=== PATIENT | female | born 1970 | race Caucasian/White ===

== ENCOUNTER 2018-05-05 15:26 | Emergency (ER) | payer OTHER ==
[~2018-05-05] VITALS: Ht 165.1 cm; Wt 56.5 kg
[~2018-05-05 15:26] MED LIST: iron PO
[2018-05-05 15:29] VITALS: BP 130/78; PULSE 68; RESP 18; Ht 165.1 cm; Wt 56.5 kg
--- NOTE | 2018-05-05 15:54 | ERD ---
ER Documentation Chief Complaint Chief Complaint right elbow pain x 2days HPI 47-year-old female, with history of chronic neck pain, presents the emergency department, complaining of acute worsening of neck pain, radiating to the right upper extremity during the last 2 days, the pain is sharp, constant, 5/10. No history of trauma. The patient denies distal weakness, numbness or tingling. No medications taken at this time. She denies fevers, no chills, no rashes. ROS All systems reviewed and are negative except as per history of present illness. Medications Home Meds Active Scripts Baclofen* (Baclofen*) 10 Mg Tablet, 10 MG PO QHS, #10 TAB Prov:LEXIS MCKINNON MD 05/05/18 Ibuprofen* (Motrin*) 400 Mg Tab, 400 MG PO Q8, #15 TAB Prov:LEXIS MCKINNON MD 05/05/18 Reported Medications [iron] No Conflict Check, 1 TAB PO DAILY 05/20/13 Allergies Allergies: Coded Allergies: No Known Drug Allergies (Verified Allergy, 02/22/13) PMhx/Soc History of Surgery: Yes (hysteroscopy) Anesthesia Reaction: No Hx Neurological Disorder: No Hx Respiratory Disorders: No Hx Cardiac Disorders: No Hx Psychiatric Problems: No Hx Miscellaneous Medical Probl: Yes (anemia) Hx Alcohol Use: No Hx Substance Use: No Hx Tobacco Use: No Smoking Status: Never smoker FmHx Family History: No diabetes, No coronary disease Physical Exam Vitals Vital Signs Date Temp Pulse Resp B/P (MAP) Pulse Ox O2 O2 Flow FiO2 Time Delivery Rate 05/05/18 98.5 68 18 130/78 100 15:29 (95) Physical Exam Const: No acute distress Head: Atraumatic Eyes: Normal Conjunctiva ENT: Normal External Ears, Nose and Mouth. Neck: Full range of motion. No meningismus. Resp: Clear to auscultation bilaterally Cardio: Regular rate and rhythm, no murmurs Abd: Soft, non tender, non distended. Normal bowel sounds Skin: No petechiae or rashes Back: No midline or flank tenderness Ext: Right upper extremity: Normal inspection, normal pulses, no deformity, no masses. No cyanosis, or edema Neur: Awake and alert Psych: Normal Mood and Affect Results 24 hrs Current Medications Medications Dose Sig/Yasmin Start Time Status Last (Trade) Ordered Route PRN Stop Time Admin Dose Reason Admin Ketorolac 30 mg ONCE STAT 05/05/18 DC Tromethamine IM 17:08 (Toradol) 05/05/18 17:12 DIAGNOSTIC IMAGING REPORT Patient: LOU TARANGO : 1970 Age: 47 Sex: F MR #: [id number] DOS: 05/05/18 1552 Ordering MD: LEXIS MCKINNON MD Location: [facility] Room/Bed: PROCEDURE: Right humerus x-ray CLINICAL INDICATION: rt humerus pain TECHNIQUE: AP and lateral views of the humerus were obtained. COMPARISON: None FINDINGS: No acute fracture. No dislocation of the shoulder or elbow joints. No erosive changes or periosteal reaction. No focal soft tissue abnormality. IMPRESSION: Unremarkable x-ray of the right humerus. RPTAT:AAJJ Physician Leda Date Time Electronically viewed and signed by Mckay K[place]ney Physician on 05/05/2018 16:29 RF/ CC: LEXIS MCKINNON MD [phone] Procedures/MDM No red flags. Differential diagnosis include but not limited to: Cervical sprain/strain, cervical radiculopathy, herniated disk, muscle spasm. Neurovascular exam grossly intact. no clinical findings suggestive of acute infectious process, no acute deformity, no edema, no rashes. Physical examination and clinical presentation consistent most likely with acute on chronic neck pain with radiculopathy. During the ED course the patient received treatment with Toradol IM presenting overall improvement of the symptoms. Results and clinical impression discussed with patient who agrees with manag ement. The patient is stable to be treated outpatient and will be discharged home with recommendations and close monitoring The patient was instructed to follow up with the primary care provider in the next 48h. If symptoms persist, worsen or new symptoms develop, then patient should return to the ED immediately. Instructions explained and given to patient with acknowledgment and demonstrated understanding. Disclaimer: Inadvertent spelling and grammatical errors are likely due to EHR/dictation software use and do not reflect on the overall quality of patient care. Also, please note that the electronic time recorded on this note does not necessarily reflect the actual time of the patient encounter. Departure Diagnosis: Primary Impression: Neck pain Additional Impression: Arthralgia of right upper arm Condition: Stable Additional Instructions: Thank you very much for allowing us to participate in your care. Your health and safety is our top priority at [facility]. Call your primary care doctor TOMORROW for an appointment during the next 2-4 days and bring all the information and medications prescribed. Have prescriptions filled and follow precisely the directions on the label. If the symptoms get worse and your provider is unavailable, return to the Emergency Department immediately. LEXIS MCKINNON MD May 05, 2018 15:54
[2018-05-05] MEDS ORDERED: KETOROLAC 30 MG INJ IM STA (17:08)
[2018-05-05] MEDS ORDERED: IBUP-1561 PO (17:34)
[2018-05-05] MEDS ORDERED: BACL10TA PO (17:34)
== END 2018-05-05 17:51 | disposition home or self-care (01) ==
LOC: FTE 15:26
DX: M54.2 Cervicalgia (principal); M79.601 Pain in right arm
CPT/HCPCS: 72040; 73060; 81025; 96372; J1885; Z7502